=== PATIENT | male | born 1980 | race Two or more races ===

== ENCOUNTER 2021-06-10 21:22 | Emergency (ER) | payer BC, OTHER ==
[~2021-06-10] VITALS: Ht 170.2 cm; Wt 79.4 kg
[2021-06-10 21:22] VITALS: BP 158/78
[2021-06-10] MEDS ORDERED: methylPREDNISolone SOD SUCC 125 MG/2 ML VL IM ONE (21:30)
[2021-06-10] MEDS ORDERED: PRED20TA2 PO (23:11)
== END 2021-06-10 23:12 | disposition home or self-care (01) ==
LOC: ER 21:22
DX: J45.909 Unspecified asthma, uncomplicated (principal)
CPT/HCPCS: 71045; 96372; 99283; J2930

== ENCOUNTER 2021-06-11 15:38 | Emergency (ER) | payer BC ==
[~2021-06-11] VITALS: Ht 170.2 cm; Wt 79.4 kg
[~2021-06-11 15:38] MED LIST: PRED20TA2 PO
[2021-06-11] MEDS ORDERED: ALBUTEROL SULF 2.5 MG/0.5ML(0.5%) NEB SOLN NEB ONE (17:00)
[2021-06-11] MEDS ORDERED: IPRATROPIUM BROM 0.5 MG/2.5ML INH SOL NEB ONE (17:00)
[2021-06-11 18:31] VITALS: BP 136/70
== END 2021-06-11 18:34 | disposition home or self-care (01) ==
LOC: ER 15:38
DX: J45.901 Unspecified asthma with (acute) exacerbation (principal)
CPT/HCPCS: 94640; 99283; J7644; 94644

== ENCOUNTER 2021-06-18 09:19 | Emergency (ER) | payer BC ==
[~2021-06-18] VITALS: Ht 170.2 cm; Wt 79.4 kg
[2021-06-18 10:15] VITALS: BP 112/79
[2021-06-18] MEDS ORDERED: methylPREDNISolone SOD SUCC 125 MG/2 ML VL IM ONE (10:30)
[2021-06-18] MEDS ORDERED: cefTRIAXone SOD 1,000 MG VL IM ONE (10:30)
== END 2021-06-18 11:28 | disposition home or self-care (01) ==
LOC: ER 09:19
DX: J06.9 Acute upper respiratory infection, unspecified (principal); J45.909 Unspecified asthma, uncomplicated
CPT/HCPCS: 71045; 96372; 99284; J0696; J2930